=== PATIENT | female | born 1995 | race Caucasian/White ===

== ENCOUNTER → 2017-09-22 | Outpatient (CLI) | payer OTHER ==
[~2017-09-22] VITALS: Ht 162.6 cm; Wt 87.4 kg
[2017-09-22 09:09] VITALS: BP 120/70; PULSE 91
[2017-09-22 10:22] VITALS: BP 118/70; PULSE 90
== END ==
LOC: COL.RAD 08:53
DX: R59.0 Localized enlarged lymph nodes (principal); J35.1 Hypertrophy of tonsils